=== PATIENT | male | born 1980 | race Hispanic/Latino ===

== ENCOUNTER 2019-04-07 16:05 | Emergency (ER) | payer SELFPAY ==
[2019-04-07] MEDS ORDERED: Kenalog-40 IM ONE (16:21)
--- NOTE | 2019-04-07 16:47 | ERPHSYRPT ---
- History of Present Illness Time Seen by Provider: 04/07/19 16:15 Patient Subjective Stated Complaint: Right elbow injury Triage Nursing Assessment: Patient ambulated back to ED and transferred self to bed. Patient A+O X 3. Patient's skin pink warm and dry. Patient complains of swelling in right elbow. Patient unaware of injury. Patient denies pain or discomfort. Patient able to move right arm. Soft raised area noted to right elbow. Physician History: Patient has swelling to the right posterior elbow for the past three days. He can not recall any injury to the elbow and denies any pain to the elbow. 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 Occurred: days ago (3) Method of Injury: unknown Quality: constant Severity of Pain-Max: none Severity of Pain-Current: none Extremities Pain Location: elbow: right (no pain, only swelling) Modifying Factors: Improves With: nothing Associated Symptoms: none, No back pain, No chills, No chest discomfort, No chest pain, No dyspnea, No fever, No jaw pain, No nausea, No neck pain, No sweating, No short of breath, No vomiting Allergies/Adverse Reactions: No Known Drug Allergies Allergy (Verified 04/07/19 16:25) Hx Tetanus, Diphtheria Vaccination/Date Given: No Hx Influenza Vaccination/Date Given: No Hx Pneumococcal Vaccination/Date Given: No Immunizations Up to Date: Yes - Review of Systems Constitutional: No Fever, No Chills Eyes: No Eye Pain, No Vision Changes Ears, Nose, & Throat: No Ear Pain, No Mouth Pain, No Throat Swelling, No Painful Swallowing Respiratory: No Cough, No Dyspnea Cardiac: No Chest Pain, No Palpitations, No Syncope Abdominal/Gastrointestinal: No Abdominal Pain, No Nausea, No Vomiting, No Hematemesis, No Hematochezia, No Melena Genitourinary Symptoms: No Dysuria, No Frequency, No Hematuria, No Urinary Retention, No Flank Pain Musculoskeletal: No Arthralgias, No Back Pain, No Neck Pain, No Joint Redness, No Joint Pain, No Joint Swelling, No Myalgias Skin: No Pruritis, No Rash Neurological: No Focal Weakness, No Parasthesia, No Sensory Changes, No Tremors Endocrine: No Polydipsia, No Excessive Sweating Hematologic/Lymphatic: No Easy Bleeding All Other Systems: Reviewed and Negative - Past Medical History Pertinent Past Medical History: Yes Neurological History: No Pertinent History ENT History: No Pertinent History Cardiac History: No Pertinent History Respiratory History: No Pertinent History Endocrine Medical History: No Pertinent History Musculoskeletal History: No Pertinent History GI Medical History: No Pertinent History History: No Pertinent History Psycho-Social History: No Pertinent History Male Reproductive Disorders: No Pertinent History - Past Surgical History Past Surgical History: No Neuro Surgical History: No Pertinent History Cardiac: No Pertinent History Respiratory: No Pertinent History Gastrointestinal: No Pertinent History Genitourinary: No Pertinent History Musculoskeletal: No Pertinent History Male Surgical History: No Pertinent History - Social History Smoking Status: Never smoker Exposure to second hand smoke: No Drug Use: none Patient Lives Alone: No - Nursing Vital Signs Nursing Vital Signs: Pain Scale Pain Intensity 0 - Physical Exam General Appearance: no apparent distress Eyes, Ears, Nose, Throat Exam: pharynx normal, moist mucous membranes Neck Exam: normal inspection, non-tender, supple, full range of motion, No Brudzinski Cardiovascular/Respiratory Exam: chest non-tender, normal breath sounds, regular rate/rhythm, heart sounds normal, no ecchymosis, no JVD, no M/R/G, no respiratory distress Abdominal Exam: non-tender, soft, no organomegaly Back Exam: normal inspection, normal range of motion, No CVA tenderness, No vertebral tenderness Shoulder Exam: normal inspection, non-tender, no evidence of injury, normal ROM Elbow/Forearm Exam: non-tender, no evidence of injury, normal ROM, swelling ( right posterior olecranon bursa, mild), No bone tenderness, No deformity, No ecchymosis, No limited ROM, No pain Wrist Exam: normal inspection, non-tender, no evidence of injury, normal ROM Hand Exam: normal inspection, non-tender, no evidence of injury, normal ROM DTR - Upper Extremity Exam: bicep (R): 2+, bicep (L): 2+ Neuro/Tendon Exam: normal sensation, normal motor functions, normal tendon functions, no evidence tendon injury, No motor deficit, No sensory deficit Mental Status Exam: alert, oriented x 3, cooperative Skin Exam: normal color, warm, dry, No rash, No petechiae, No cyanosis SpO2 Interpretation: normal O2 Delivery: Room Air Procedures - Additional Procedures Progress: Right Olecranon Bursa sac aspiration performed after informed consent obtained. Patient had 3 cc of serous appearing fluid aspirated from the right elbow using posterior approach and an 18 gauge needle under aseptic technique. 30mg of Kenalog injected into the bursa sac after aspiration and visualization of the fluid. Elbow compressed with an BENNY wrap. Olecranon bursa size back to normal in comparison to left olecranon bursa. Patient tolerated the procedure well without any complications and was neurovascularly intact distal to the aspiration site of the right upper extremity without any deficits. - Course Nursing assessment & vital signs reviewed: Yes Ordered Tests: Active Orders 24 hr Category Date Time Status GRAM STAIN Stat Lab 04/07/19 16:50 Uncollected Medication Summary Discontinued Medications Generic Name Dose Route Start Last Admin Trade Name Freq PRN Reason Stop Dose Admin Triamcinolone Acetonide 40 mg 04/07/19 16:21 04/07/19 16:33 Kenalog-40 IM 04/07/19 16:22 40 mg STAT ONE Administration - Progress Progress: improved Progress Note: 04/07/19 16:50 Patient has improvement after aspiration and is neurovascularly intact Counseled pt/family regarding: diagnosis, need for follow-up - Departure Departure Disposition: Home Clinical Impression: Olecranon bursitis of right elbow Condition: Good Critical Care Time: No Referrals: DOCTOR,NO FAMILY [Primary Care Provider] - GRIS DARLING DO [ACTIVE STAFF] - Follow Up with PCP/3 days Instructions: Olecranon Bursitis (DC), Olecranon Bursitis Exercises Additional Instructions: Return immediately to the emergency department if any worse pain, no fever, worse swelling or any other concerning sign or symptom not present at today's emergency department visit. Prescriptions: Etodolac 400 mg [Lodine 400 mg] 400 mg PO BID PRN PRN #20 tablet PRN Reason: Pain
[2019-04-07 16:52] VITALS: BP 124/62; PULSE 65; O2SAT 98
== END 2019-04-07 17:31 | disposition home or self-care (01) ==
LOC: ED 16:05
DX: M70.21 Olecranon bursitis, right elbow (principal)
CPT/HCPCS: 87070; 87205; 89050; 89060; 96372; 99284; J3301